=== PATIENT | female | born 1935 | race Caucasian/White ===

== ENCOUNTER → 2021-09-22 | Outpatient (CLI) | payer MEDICARE, BC ==
[~2021-09-22] MED LIST: ALBUTEROL SULFAT3 M3 IH; ATROVENT I0.2 MG/1 M IH; AURALGAN 54 MG/10 ML OT; CENTRUM SILVER1 CTB PO; FLONASE NASAL S16 GM NS; GAS RELIEF180 MG PO; HCTZ12.5TAB PO; MICARDIS80 MG PO; MUCINEX 60600 MG/TA1 PO; NYSTATIN OR100 MU/ML PO; OMNICEF 300MG300 MG PO; PREDNISONE20 MG PO; PRILOSEC 20MG20 MG PO; PROAIR HFA0.09 MG/AC IH; PULMICORT0.5 MG/2 M IH; QUESTRAN4 GM/9 GM PO; SINGULAIR 110 MG/TAB PO; TUSS PO; TYLENOL EXTRA500 M1 PO; VITAMIN C500 MG PO
== END ==
LOC: ZCOL.LAB 17:01
DX: J33.9 Nasal polyp, unspecified (principal)

== ENCOUNTER 2022-01-07 07:34 | Inpatient (IN) | payer MEDICARE, BC ==
[2022-01-07] VITALS (656 sets, daily range): BP systolic 115–148; BP diastolic 55–115; PULSE 54–94; TEMP 97.5–99; O2SAT 86–100
[~2022-01-07] VITALS: Ht 154.9 cm; Wt 153.1 kg
[2022-01-07 08:33] LABS: BASO % 0.6 % (0.0-2.0); EOS % 0.6 % (0.0-4.0); HEMOGLOBIN 11.9 g/dl (12.5-16.0); LYMPH # 1.5 K/mm3 (1.2-3.4); LYMPH % 28.2 % (20.0-51.0); MEAN CELL VOLUME 98 fl (80.0-100.0); MEAN CORPUSCULAR HEMOGLOBIN 33 pg (27-31); MEAN CORPUSCULAR HGB CONC 34 g/dl (33.0-37.0); MONO # 0.7 K/mm3 (0.1-0.6); MONO % 13.4 % (1.7-9.3); PLATELET COUNT 237 K/mm3 (130-400); RED BLOOD COUNT 3.58 M/mm3 (4.10-5.30); REDCELL DISTRIBUTION WIDTH-CV 12.7 % (11.5-14.5)
[2022-01-07 08:39] LABS: INR 1.1 (0.8-3.0); PROTHROMBIN TIME 12.6 SECONDS (9.7-12.8)
[2022-01-07 08:42] LABS: PARTIAL THROMBOPLASTIN TIME 34.8 SECONDS (26.0-37.0)
[2022-01-07 08:51] LABS: ALBUMIN 3.8 gm/dL (3.4-4.8); BILIRUBIN,TOTAL 0.4 mg/dL (0.2-1.2); CALCIUM 9.4 mg/dL (8.4-10.2); CREATININE, serum 0.69 mg/dL (0.57-1.11); POTASSIUM 4.5 mmol/L (3.5-4.5); TOTAL PROTEIN 6.6 gm/dL (6.2-8.1)
[2022-01-07 08:56] LABS: TROPONIN-I 0.016 ng/mL (0.00-0.033)
[2022-01-07 09:35] LABS: COLLECTION METHOD IN
[2022-01-07 09:41] LABS: MUCOUS Present (NOT PRESENT); PH 7 (5-8); SQUAMOUS EPITHELIAL 0-2 /hpf (0-10); URINE APPEARANCE Clear (CLEAR/HAZY); URINE BACTERIA Rare /hpf (NONE SEEN); URINE BLOOD Negative (NEGATIVE); URINE COLOR Yellow (YELLOW); URINE GLUCOSE Negative (NEGATIVE); URINE KETONE Negative (NEGATIVE); URINE NITRATE Negative (NEGATIVE); URINE PROTEIN(semi-quant) Negative (NEGATIVE); URINE UROBILINOGEN Negative (NEGATIVE)
[2022-01-07 12:58] LABS: CHOLESTEROL RISK RATIO 3.5
[2022-01-07 13:17] LABS: THYROID STIMULATING HORMONE 1.198 uIU/mL (0.350-4.940)
--- NOTE | 2022-01-07 16:30 | NUR ---
PATIENT WENT TO MRI THIS AFTERNOON AND TOLERATED PROCEDURE WELL; WHEN PATIENT GOT BACK TO THE UNIT SHE WAS PLACED BACK IN BED AND RESTED COMFORTABLY.
--- NOTE | 2022-01-07 18:30 | NUR ---
PATIENT HAD MINIMAL DRIFT IN THE LEFT HAND TODAY WHILE PERFORMING [facility] STROKE SCALE TASKS AND OTHERWISE SCORED NORMAL. SENSATION AND DEXTERITY HAVE GREATLY IMPROVED THROUGHOUT THE DAY AND SHE NOW HAS MOVEMENT AND FEELING IN HER LEFT HAND AGAIN. PATIENT DID WELL THROUGHOUT THE DAY AND WAS ALERT AND ORIENTED WITH NO ALTERED MENTATION AND NO DEFICITS WITH SPEAKING, EATING, OR DRINKING. PATIENT HAS MANY COMPLAINTS OF ACHES AND PAINS, HOWEVER, THESE ARE DUE TO PREEXISTING CONDITIONS. PATIENT IS CURRENTLY IN BED RESTING AND WATCHING TV.
[2022-01-07] MEDS ORDERED: ADVAIR (20:46)
[2022-01-07] MEDS ORDERED: ZYRTEC (20:46)
[2022-01-08] VITALS (875 sets, daily range): BP systolic 120–150; BP diastolic 57–99; PULSE 58–72; TEMP 97.6–98.7; O2SAT 76–100
[2022-01-08 07:07] LABS: BASO % 0.3 % (0.0-2.0); EOS % 0.6 % (0.0-4.0); GRAN # 3.3 K/mm3 (1.4-6.5); GRAN % 53.4 % (42.2-75.2); HEMOGLOBIN 10.7 g/dl (12.5-16.0); LYMPH % 31.5 % (20.0-51.0); MEAN CELL VOLUME 97 fl (80.0-100.0); MEAN CORPUSCULAR HEMOGLOBIN 32 pg (27-31); MEAN CORPUSCULAR HGB CONC 33 g/dl (33.0-37.0); MEAN PLATELET VOLUME 9.4 fl (7.4-10.4); MONO # 0.9 K/mm3 (0.1-0.6); MONO % 13.9 % (1.7-9.3); PLATELET COUNT 232 K/mm3 (130-400); REDCELL DISTRIBUTION WIDTH-CV 12.6 % (11.5-14.5)
[2022-01-08 07:27] LABS: CALCIUM 8.6 mg/dL (8.4-10.2); CREATININE, serum 0.63 mg/dL (0.57-1.11); MAGNESIUM 1.9 mg/dL (1.6-2.6); POTASSIUM 4.1 mmol/L (3.5-4.5)
--- NOTE | 2022-01-08 09:38 | NUR ---
PT KEEPS CALLING SON AND LEAVING VOICEMAILS STATING THAT " WE ARE NOT GIVING HER PAIN MEDS, AND THAT WE ARE NOT TREATING HER AND THAT THIS PLACE IS AWFUL". THIS NURSE HAS REASSURED PT THAT WE ARE TAKING CARE OF HER, THAT SHE IS RECIEVEING PAIN MEDICATION AND THAT THE PHYSICIANS WILL BE ROUNDING SOON, AND WE WILL KNOW MORE SOON.
--- NOTE | 2022-01-08 09:47 | NUR ---
Socail worker met with patient to complete intake. Patient reports that she lives at home alone in [place]. Patient states that she is independent with her ADL's and will utilize a 3 wheeled walker to assist with mobility. Patient has no home oxygen needs. PCP is and she utilizes [facility] for prescriptions. Patient states that she does have a DPOA- estbalished listing her son Sudeep ([phone])
--- NOTE | 2022-01-08 17:16 | NUR ---
FAMILY IS BEDSIDE.
--- NOTE | 2022-01-08 17:20 | NUR ---
PER DR ALAS. ASPIRIN HAS BEEN DC FOR HX OF [facility] AND [facility] RECOMMENDATIONS.
--- NOTE | 2022-01-08 19:31 | NUR ---
TX GIVEN VIA MOUTHPIECE, TOLERATED WELL. PT ON ROOM AIR BEFORE AND AFTER TX.
--- NOTE | 2022-01-08 22:00 | NUR ---
BEDSIDE SHIFT REPORT RECEIVED FROM ELSY FRANK. PT CURRENTLY SITTING UP IN CHAIR RESTINTG. NO C/O PAIN OR DISCOMFORT AT THIS TIME. SALINE LOCKED. VSS. NO ACUTE CHANGES NOTED AT THIS TIME
[2022-01-09] VITALS (31 sets, daily range): BP systolic 120–134; BP diastolic 57–94; PULSE 60–70; TEMP 97.9–98.3; O2SAT 75–98
--- NOTE | 2022-01-09 10:22 | NUR ---
PT ALERT AND ORIENTED. ASSESSMENT COMPLETED. VSS. PT AMBULATED TO THE BEDSIDE COMMODE. CALL LIGHT WITHIN REACH.
[2022-01-09 10:35] LABS: BASO % 0.5 % (0.0-2.0); EOS # 0.1 K/mm3 (0.0-0.7); EOS % 0.8 % (0.0-4.0); GRAN # 4.2 K/mm3 (1.4-6.5); GRAN % 65.3 % (42.2-75.2); HEMOGLOBIN 11.2 g/dl (12.5-16.0); LYMPH # 1.3 K/mm3 (1.2-3.4); LYMPH % 20.7 % (20.0-51.0); MEAN CELL VOLUME 96 fl (80.0-100.0); MEAN CORPUSCULAR HEMOGLOBIN 33 pg (27-31); MEAN CORPUSCULAR HGB CONC 34 g/dl (33.0-37.0); MEAN PLATELET VOLUME 9.1 fl (7.4-10.4); MONO # 0.8 K/mm3 (0.1-0.6); MONO % 12.5 % (1.7-9.3); PLATELET COUNT 226 K/mm3 (130-400); RED BLOOD COUNT 3.42 M/mm3 (4.10-5.30); REDCELL DISTRIBUTION WIDTH-CV 12.5 % (11.5-14.5)
[2022-01-09 10:37] LABS: HEMATOCRIT 32.9 % (37.0-47.0)
[2022-01-09 10:50] LABS: CALCIUM 8.9 mg/dL (8.4-10.2); CREATININE, serum 0.75 mg/dL (0.57-1.11); POTASSIUM 4.5 mmol/L (3.5-4.5)
[2022-01-09] MEDS ORDERED: PLAVIX 75MG TAB75 MG PO (11:03)
[2022-01-09] MEDS ORDERED: LIPITOR20 MG PO (11:05)
--- NOTE | 2022-01-09 12:22 | NUR ---
MATIAS spoke with Sudeep and family was concern about pt being home alone. Pt family would like pt to do rehab. MATIAS informed family that she medically stable and ready to be DC and does not need SNF or rehab. Home health was recommended and private HH as well for additional support if needed. MATIAS called ELSY Medley and informed her of info to family. MATIAS sent referral to [facility] 1st choice and [facility] 2nd choice.
--- NOTE | 2022-01-09 12:26 | NUR ---
PT GIVEN ATORVOSTATIN PER PHYSICIAN.
--- NOTE | 2022-01-09 13:18 | NUR ---
DR. HARDING STATED THAT HE WOULD LIKE A HOLTER MONITOR PLACED. AT THIS TIME RT CANNOT PLACE MONITOR ON PT, THAT THE MONITOR CAN BE PLACED IN OFFICE AT HER 0930 APPT. PHYSICIAN NOTIFIED.
--- NOTE | 2022-01-09 13:18 | NUR ---
PT RECEIVED EDUCATION ON SIGNS AND SYMPTOMS OF STROKE AND GOING HOME ON BLOOD THINNERS. PT DEMONSTRATED UNDERSTANDING OF EDUCATION. PT IN RECLINER WAITING FOR FAMILY TO PICK HER UP. CALL LIGHT WITHIN REACH.
--- NOTE | 2022-01-11 08:57 | NUR ---
Discharge orders and clinical therapy notes faxed to [facility].
== END 2022-01-09 14:25 | disposition home health service (06) | DRG 62 ==
LOC: COL.ER 07:34 → ICU 09:39
PROVIDERS: Emergency Medicine; Internal Medicine; ADMIT Family Medicine
PROC: 3E03317 Introduction of Other Thrombolytic into Peripheral Vein, Percutaneous Approach (ICD-10-PCS; principal; 2022-01-07)
PROC: 4A03X5D Measurement of Arterial Flow, Intracranial, External Approach (ICD-10-PCS; 2022-01-07)
DX: I63.511 Cerebral infarction due to unspecified occlusion or stenosis of right middle cerebral artery (principal); I69.354 Hemiplegia and hemiparesis following cerebral infarction affecting left non-dominant side; I10 Essential (primary) hypertension; Z20.822 Contact with and (suspected) exposure to COVID-19; I65.22 Occlusion and stenosis of left carotid artery; E78.1 Pure hyperglyceridemia; K21.9 Gastro-esophageal reflux disease without esophagitis; Z66 Do not resuscitate; Z96.652 Presence of left artificial knee joint; Z96.641 Presence of right artificial hip joint; I48.91 Unspecified atrial fibrillation; E78.5 Hyperlipidemia, unspecified; J30.2 Other seasonal allergic rhinitis; R29.702 NIHSS score 2; Z90.710 Acquired absence of both cervix and uterus; Z88.0 Allergy status to penicillin; Z90.89 Acquired absence of other organs; Z90.49 Acquired absence of other specified parts of digestive tract; Z88.6 Allergy status to analgesic agent; Z23 Encounter for immunization
CPT/HCPCS: 99223-AI; A4314; J2405; J3101; J7030; Q9967

== ENCOUNTER 2022-08-17 07:57 | Emergency (ER) | payer MEDICARE, BC ==
[~2022-08-17] VITALS: Ht 152.4 cm; Wt 64.5 kg
[~2022-08-17 07:57] MED LIST changes: +ADVAIR; +LIPITOR20 MG PO; +PLAVIX 75MG TAB75 MG PO; +ZYRTEC
[2022-08-17 08:05] VITALS: TEMP 97.8
[2022-08-17 08:26] LABS: BASO % 0.3 % (0.0-2.0); EOS # 0.1 K/mm3 (0.0-0.7); GRAN # 3.4 K/mm3 (1.4-6.5); GRAN % 55.5 % (42.2-75.2); HEMATOCRIT 38.2 % (37.0-47.0); HEMOGLOBIN 12.9 g/dl (12.5-16.0); LYMPH # 1.9 K/mm3 (1.2-3.4); LYMPH % 31.8 % (20.0-51.0); MEAN CELL VOLUME 100 fl (80.0-100.0); MEAN CORPUSCULAR HEMOGLOBIN 34 pg (27-31); MEAN CORPUSCULAR HGB CONC 34 g/dl (33.0-37.0); MEAN PLATELET VOLUME 9.5 fl (7.4-10.4); MONO # 0.6 K/mm3 (0.1-0.6); MONO % 9.9 % (1.7-9.3); PLATELET COUNT 202 K/mm3 (130-400); RED BLOOD COUNT 3.84 M/mm3 (4.10-5.30)
[2022-08-17 08:42] LABS: ALBUMIN 4.2 gm/dL (3.4-4.8); BILIRUBIN,TOTAL 0.6 mg/dL (0.2-1.2); CALCIUM 9.5 mg/dL (8.4-10.2); CREATININE, serum 0.79 mg/dL (0.57-1.11); TOTAL PROTEIN 7.1 gm/dL (6.2-8.1)
[2022-08-17 08:48] LABS: TROPONIN-I 0.019 ng/mL (0.00-0.033)
[2022-08-17 10:34] VITALS: BP 141/65; PULSE 75
== END 2022-08-17 10:55 | disposition home or self-care (01) ==
LOC: COL.ER 07:57
PROVIDERS: Emergency Medicine
DX: M79.602 Pain in left arm (principal)